=== PATIENT | male | born 2005 | race Caucasian/White ===

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

== ENCOUNTER 2025-03-11 02:17 | Day surgery (SDC) | payer OTHER, SELFPAY ==
[2025-02-26 15:02] VITALS: BMI 21.2
--- OUTSIDE RECORDS SUMMARY | 2025-03-11 02:20 | XMS_ITS | Clinical Summary ---
Author Organization [facility] [employer] Address [address] [place] [address] Care Team Providers Care Tassel Snipper Name Role Phone Hung Vu MD Primary Care Provider [phone] Source Comments [facility] [employer],non-owned Affiliates and Associated Physician Practices is amultiple site organization consisting of ambulatory clinics and hospital sitesin [place], [place], [place] and [place]. This disclosure is being madepursuant to the Care Everywhere program and may not contain all information available regarding this patient. Last updated 18.[facility] [employer] Allergies No known active allergies Medications * Be aware that medications may not be up to date on this document. Alwaysverify current medications with the patient. lansoprazole (PREVACID) 30 MG capsule Take 1 capsule by mouth daily before breakfast 30 capsule 2 0 Active Active Problems Problem Noted Date Diagnosed Date Closed fracture of distal end of right radius Social History Tobacco Use Types Packs/Day Years Used Date Smoking Tobacco: Never Smokeless Tobacco: Never Alcohol Use Standard Drinks/Week Comments Never 0 (1 standard drink = 0.6 oz pur e alcohol) AUDIT-C Answer Date Recorded Q1: How often do you have a drink containing alc ohol? Never 01/20/2020 Average Number of Drinks Not on file 020 Frequency of Binge Drinking Not on file 01/01 Sex and Gender Information Value Date Recorded Sex Assigned at Not on file Legal Sex Male 10:04 AM CDT Gender Identity Not on file Sexual Orientation Not on file Last Filed Vital Signs Vital Sign Reading Time Taken Comments Blood Pressure 117/63 01/21/2020 1:00 AM CDT Pulse 102 01/21/2020 1:00 AM CDT Temperature 37.1 C (98.8 F) 01/21/2020 12:30 AM CDT Respiratory Rate 15 01/21/2020 1:00 AM CDT Oxygen Saturation 99% 01/21/2020 1:00 AM CDT Inhaled Oxygen Concentration - - Weight 50.8 kg (111 lb 15.9 oz) 01/20/2020 9:19 PM CDT Height - - Body Mass Index - - Plan of Treatment Health Maintenance Due Date Last Done Comments HIV SCREENING 2020 HPV VACCINE (1 - Male 3-dose series) 2020 MENINGOCOCCAL (Group B) VACC INE SHARED DECISION-MAKING (1 of 2 - Standard) 2021 HEPATITIS C SCREENING 07/08/2023 COVID-19 VACCINE (1 - 2023-2 5 season) 2024 DTAP/TDAP/TD VACCINES (1 - Tdap) 2024 HEPATITIS B VACCINE (1 of 3 - 19+ 3-dose series) 2024 DEPRESSION SCREENING 10/03/2024 INFLUENZA VACCINE (Season Ended) 2025 ZOSTER VACCINE (1 of 2) 2055 HIB VACCINE Aged Out No longer eligi ble based on patient's age to complete this topic MENINGOCOCCAL GROUPS A/C/Y/W VACCINE Aged Out No longer eligible b ased on patient's age to complete this topic PNEUMOCOCCAL VACCINE Aged Out No long er eligible based on patient's age to complete this topic Insurance AETNA AETNA AETNA Care Teams Tassel Snipper Relationship Specialty Start Date End Date Hung Vu MD [address] [place] [address] PCP - General Pediatrics 07/13/16
[2025-03-11 09:50] VITALS: BP 129/85; PULSE 79; RESP 20; TEMP 36.6; O2SAT 100; BMI 20.5
[2025-03-11] MEDS: LACTATED RINGERS 1,000 ML 150 ML IV CONT (10:07)
--- NOTE | 2025-03-11 10:25 | P.HP_ITS ---
H&P: HPI History of Present Illness Date/Time: 03/11/25 10:25 Chief Complaint: Dysphagia Narrative: this patient has been experiencing difficulty swallowing solid food or even pills for several years, since childhood. Approximately 4 years ago he had a food impaction, treated at [facility] in [place]. Review of Systems Review of Systems: All systems reviewed & are unremarkable except as noted in HPI and below PMFSH Family History Family History Father Cerebrovascular accident Heart disease Social History Social History Smoking status: Never smoker Alcohol intake: never Substance use: never Living arrangements: with family Gender identity (if verbalized by the patient): Male Spiritual care concerns: No Meds Home Medications and Allergies Home Medications ?Medication ?Instructions ?Recorded ?Confirmed ?Type No Home Medications 01/20/20 02/26/25 History Allergies Allergy/AdvReac Type Severity Reaction Status Date / Time No Known Allergies Allergy Mild Verified 03/11/25 09:57 Vital Signs Vital Signs - 24 hr 03/11/25 09:50 Temperature 98 F Pulse Rate 79 Respiratory Rate 20 Blood Pressure 129/85 Pulse Oximetry 100 Oxygen Delivery Room Air Exam Const: General: cooperative and healthy appearing Resp: Effort & Inspection: normal respiratory effort and able to speak in complete sentences Auscultation: clear to auscultation bilaterally Cardio: Rate: regular rate Rhythm: regular rhythm GI: Inspection: normal to inspection GI Palp: No No hepatosplenomegaly present Auscultation: normal bowel sounds Rectal Exam: deferred Skin: General skin exam: normal color Psych: Appearance: grossly normal Mental Status: mental status grossly normal Assessment and Plan Assessment and plan (1) Dysphagia: Code(s): R13.10 - Dysphagia, unspecified Status: Acute Assessment and Plan: suspected eosinophilic esophagitis. The patient is deemed a good candidate for the procedure. Consent signed. Will proceed.
--- NOTE | 2025-03-11 10:27 | WPDANESEPPF ---
Anes - Initial Pre Proc Eval Procedure: Operation Date: 03/11/25 14:30 Proposed Procedures p Esophagogastroduodenoscopy - Malachi Fofana MD Date/Time: 03/11/25 10:27 Surgeon: Malachi Fofana MD Pre Op Diagnosis: Dysphagia, unspecified Patient Data Age: 19 Gender: M Height: 1.85 m Weight: 70.5 kg Last Vital Signs Temp 36.6 C 03/11/25 09:50 Pulse 79 03/11/25 09:50 Resp 20 03/11/25 09:50 BP 129/85 03/11/25 09:50 Pulse Ox 100 03/11/25 09:50 O2 Del Method Room Air 03/11/25 09:50 Allergies Allergy/AdvReac Type Severity Reaction Status Date / Time No Known Allergies Allergy Mild Verified 03/11/25 09:57 Home Medications ?Medication ?Instructions ?Recorded ?Confirmed ?Type No Home Medications 01/20/20 02/26/25 History Patient hx anesthesia problems: none Family hx anesthesia problems: none Results Review: All pre-operative results and documents have been reviewed as part of the pre-operative evaluation. [facility] Family History Family History Father Cerebrovascular accident Heart disease Social History Social History Smoking status: Never smoker Alcohol intake: never Substance use: never Living arrangements: with family Gender identity (if verbalized by the patient): Male Spiritual care concerns: No Anes - Eval Final PreProcedure Day of Procedure 03/11/25 10:27 Patient weight: normal Heart: regular rate and rhythm Lungs: clear to auscultation Airway: Mallampati scale class 1 Neurological: alert and oriented Last oral intake: >/= 8 hours ASA classification: I Emergent: no Anesthetic plan: proceed Anesthesia type and monitoring: general GIVS and standard monitoring Results Review: All pre-operative results and documents have been reviewed as part of the pre-operative evaluation. Informed Consent: The patient's anesthetic plan and its attendant risks and benefits were discussed with the patient/family/POA. Questions were solicited and answers provided to the satisfaction of the patient/family/POA.
--- NOTE | 2025-03-11 10:41 | S_PTH ---
PATIENT: Howard Turner LOC: [facility] U#:[id number] AGE/SX: 19/M ROOM: RE03/11/[address]: Malachi Fofana MD : 2005 BED: DIS: 03/11/2025 SPEC #: [id number] RECD: 03/11/25 13:10 STATUS: LIBBY REQ #: [id number] LADAN: 03/11/25 10:[address]: Malachi Fofana DEPT: [facility] Surgical RECD BY: Elda Vitale ENTERED: 03/11/25 13:10 SP TYPE: Surgical OTHR DR: Fer Roberts MD Tissues: A - Esophageal Biopsy Procedures: Hematoxylin and Eosin Stain Gross and Microscopic Level 4
[2025-03-11 10:45] VITALS: BP 93/53; PULSE 74; RESP 20; O2SAT 99
[2025-03-11 10:55] VITALS: BP 102/65; PULSE 78; RESP 19; O2SAT 98
[2025-03-11 11:05] VITALS: BP 115/68; PULSE 70; RESP 20; O2SAT 98
== END 2025-03-11 11:20 | disposition home or self-care (01) ==
PROVIDERS: PCP Family Medicine; Referring Provider Family Medicine; Visit Provider Internal Medicine Gastroenterology
PROC: 0DJ08ZZ Inspection of Upper Intestinal Tract, Via Natural or Artificial Opening Endoscopic (ICD-10-PCS; CPT 43239; principal; 2025-03-11 14:30)
DX: R13.10 Dysphagia, unspecified (principal); K20.0 Eosinophilic esophagitis
CPT/HCPCS: 43239; 88305; J2003; J2704; J7120

== ENCOUNTER 2025-06-27 01:42 | Day surgery (SDC) | payer OTHER, SELFPAY ==
--- OUTSIDE RECORDS SUMMARY | 2025-06-27 01:45 | XMS_ITS | Clinical Summary ---
Author Organization [facility] [employer] Address [address] [place] [address] Care Team Providers Care Convention Worker Name Role Phone Hung Vu MD Primary Care Provider [phone] [facility] [employer],non-owned Affiliates and Associated Physician Practices is amultiple site organization consisting of ambulatory clinics and hospital sitesin [place], [place], [place] and [place]. This disclosure is being madepursuant to the Care Everywhere program and may not contain all information available regarding this patient. Last updated 18.[facility] [employer] Allergies No known active allergies Medications * [...] - Standard) 2021 HEPATITIS C SCREENING 07/08/2023 DTAP/TDAP/TD VACCINES (1 - Tdap) 2024 HEPATITIS B VACCINE (1 of 3 - 19+ 3-dose series) 2024 DEPRESSION SCREENING 10/03/2024 COVID-19 VACCINE (1 - 2023-2 5 season) 2025 INFLUENZA VACCINE (#1) 2025 ZOSTER VACCINE (1 of 2) 2055 HIB VACCINE Aged Out No longer eligi ble based on patient's age to complete this topic MENINGOCOCCAL GROUPS A/C/Y/W VACCINE Aged Out No longer eligible b ased on patient's age to complete this topic PNEUMOCOCCAL VACCINE Aged Out No long er eligible based on patient's age to complete this topic Insurance AETNA AETNA AETNA Care Teams Convention Worker Relationship Specialty Start Date End Date Hung Vu MD [address] [place] [address] PCP - General Pediatrics 07/13/16
[2025-06-27 11:53] VITALS: BP 131/78; PULSE 80; RESP 16; TEMP 37.1; O2SAT 100; BMI 21.7
[2025-06-27] MEDS: LACTATED RINGERS 1,000 ML 150 ML IV CONT (12:08)
[2025-06-27] MEDS: SIMETHICONE ORAL SUSPENSION 20 MG/0.3 ML 30 ML BOTTLE 1.8 ML PO (12:08)
--- NOTE | 2025-06-27 12:21 | PM.IMHP ---
H&P: HPI History of Present Illness Date/Time: 06/27/25 12:21 Chief Complaint: Dysphagia - established diagnosis of eosinophilic esophagitis Narrative: on 03/11/2025 I performed the EGD, finding strictures, biopsies were compatible with eosinophilic esophagitis, showing more than 20 eosinophils/hpf. he was prescribed omeprazole 40 mg q.d.. He is now for follow-up EGD and biopsies. Review of Systems Review of Systems: All systems reviewed & are unremarkable except as noted in HPI and below [facility] Past Medical History Medical History (Reviewed 05/21/25 @ 09: by Ny Fraser CMA) Eosinophilic esophagitis Family History Family History (Reviewed 05/21/25 @ : by Ny Fraser CMA) Father Cerebrovascular accident Heart disease Social History Social History (Reviewed 05/21/25 @ 09: by Ny Fraser CMA) Smoking status: Never smoker Alcohol intake: never Substance use: never Living arrangements: with family Gender identity (if verbalized by the patient): Male Spiritual care concerns: No Meds Home Medications and Allergies Home Medications ?Medication ?Instructions ?Recorded ?Confirmed ?Type omeprazole 40 mg capsule,delayed 40 mg PO BID 30 days #60 caps 03/11/25 06/27/25 Rx release Allergies Allergy/AdvReac Type Severity Reaction Status Date / Time No Known Allergies Allergy Mild Verified 06/27/25 11:57 Vital Signs Vital Signs - 24 hr 06/27/25 11:53 Temperature 98.7 F Pulse Rate 80 Respiratory Rate 16 Blood Pressure 131/78 Pulse Oximetry 100 Oxygen Delivery Room Air Exam Const: General: cooperative and healthy appearing Resp: Effort & Inspection: normal respiratory effort and able to speak in complete sentences Auscultation: clear to auscultation bilaterally Cardio: Rate: regular rate Rhythm: regular rhythm GI: Inspection: normal to inspection GI Palp: No No hepatosplenomegaly present Auscultation: normal bowel sounds Rectal Exam: deferred Skin: General skin exam: normal color Psych: Appearance: grossly normal Mental Status: mental status grossly normal Assessment and Plan Assessment and plan (1) Eosinophilic esophagitis: Code(s): K20.0 - Eosinophilic esophagitis Status: Acute Assessment and Plan: The patient is deemed a good candidate for the procedure. Consent signed. Will proceed.
--- NOTE | 2025-06-27 12:24 | WPDANESEPPF ---
Anes - Initial Pre Proc Eval Procedure: Operation Date: 06/27/25 13:00 Proposed Procedures p Esophagogastroduodenoscopy - Malachi Fofana MD Date/Time: 06/27/25 12:24 Surgeon: Malachi Fofana MD Pre Op Diagnosis: Eosinophilic esophagitis Patient Data Age: 19 Gender: M Height: 1.85 m Weight: 74.9 kg Last Vital Signs Temp 98.7 F 06/27/25 11:53 Pulse 80 06/27/25 11:53 Resp 16 06/27/25 11:53 BP 131/78 06/27/25 11:53 Pulse Ox 100 06/27/25 11:53 O2 Del Method Room Air 06/27/25 11:53 Allergies Allergy/AdvReac Type Severity Reaction Status Date / Time No Known Allergies Allergy Mild Verified 06/27/25 11:57 Home Medications ?Medication ?Instructions ?Recorded ?Confirmed ?Type omeprazole 40 mg capsule,delayed 40 mg PO BID 30 days #60 caps 03/11/25 06/27/25 Rx release Patient hx anesthesia problems: none Family hx anesthesia problems: none Results Review: All pre-operative results and documents have been reviewed as part of the pre-operative evaluation. [facility] Past Medical History Medical History Eosinophilic esophagitis Family History Family History Father Cerebrovascular accident Heart disease Social History Social History Smoking status: Never smoker Alcohol intake: never Substance use: never Living arrangements: with family Gender identity (if verbalized by the patient): Male Spiritual care concerns: No Anes - Eval Final PreProcedure Day of Procedure 06/27/25 12:24 Patient weight: normal and thin Lungs: normal air movement Airway: Mallampati scale class II Neurological: alert and oriented Last oral intake: >/= 8 hours ASA classification: I Emergent: no Anesthetic plan: proceed Anesthesia type and monitoring: general GIVS and standard monitoring Results Review: All pre-operative results and documents have been reviewed as part of the pre-operative evaluation. Healthy, EGD for recheck EOE. Informed Consent: The patient's anesthetic plan and its attendant risks and benefits were discussed with the patient/family/POA. Questions were solicited and answers provided to the satisfaction of the patient/family/POA.
--- NOTE | 2025-06-27 12:41 | S_PTH ---
PATIENT: Howard Turner LOC: [facility] U#:[id number] AGE/SX: 19/M ROOM: RE06/27/[address]: Malachi Fofana MD : 2005 BED: DIS: 06/27/2025 SPEC #: [id number] RECD: 06/27/25 13:29 STATUS: LIBBY REQ #: [id number] LADAN: 06/27/25 12:[address]: Malachi Fofana DEPT: [facility] Surgical RECD BY: Elda Vitale ENTERED: 06/27/25 13:29 SP TYPE: Surgical OTHR DR: Fer Roberts MD Tissues: A - Esophageal Biopsy Procedures: Hematoxylin and Eosin Stain Gross and Microscopic Level 4
[2025-06-27 12:48] VITALS: BP 100/60; PULSE 84; RESP 16; O2SAT 97
[2025-06-27 12:58] VITALS: BP 102/61; PULSE 80; RESP 18; O2SAT 98
[2025-06-27 13:08] VITALS: BP 112/69; PULSE 74; RESP 18; O2SAT 98
== END 2025-06-27 13:21 | disposition home or self-care (01) ==
PROVIDERS: PCP Family Medicine; Referring Provider Internal Medicine Gastroenterology; Visit Provider Internal Medicine Gastroenterology
PROC: 0DJ08ZZ Inspection of Upper Intestinal Tract, Via Natural or Artificial Opening Endoscopic (ICD-10-PCS; CPT 43239; principal; 2025-06-27 13:00)
DX: K20.0 Eosinophilic esophagitis (principal); Z87.19 Personal history of other diseases of the digestive system; Z82.49 Family history of ischemic heart disease and other diseases of the circulatory system
CPT/HCPCS: 43239; 88305; J2003; J2704; J7120